=== PATIENT | female | born 1980 | race Hispanic/Latino ===

== ENCOUNTER 2022-04-08 19:12 | Emergency (ER) | payer OTHER ==
[2022-04-08] MEDS ORDERED: IBUPROFEN 400 MG TAB ONE (21:00)
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
[2022-04-08 23:35] VITALS: TEMP 98.5; O2SAT 100
[2022-04-08 23:37] VITALS: BP 147/109
== END 2022-04-08 21:56 | disposition home or self-care (01) ==
LOC: ER 19:12
DX: R07.89 Other chest pain (principal); V49.9XXA Car occupant (driver) (passenger) injured in unspecified traffic accident, initial encounter
CPT/HCPCS: 71046; 99284